=== PATIENT | female | born 1935 | race Caucasian/White ===

== ENCOUNTER 2019-08-29 10:47 | Emergency (ER) | payer MEDICARE, SELFPAY ==
--- NOTE | ~2019-08-29 | XR_ITS ---
EXAMINATION: XR knee RT min 4V EXAM DATE: 08/29/2019 11:16 INDICATION: Initial encounter following injury, with pain of the right knee. TECHNIQUE: Right knee frontal, crosstable lateral, orthogonal oblique projections for interpretation . There is no prior study for comparison. FINDINGS: No evidence osteochondral defect or joint body in the right knee joint. There are no acut e fractures or dislocations identified. There is no subcutaneous gas. There is soft tissue swelling anterior to the patellar tendon. There are no radiopaque foreign bodies. 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 IMPRESSION: 1. XR knee RT min 4V exam without acute osseous findings. 2. Soft tissue swelling. 3. Mild osteoarthritis. Reviewed, dictated and finalized at location B. MENT SCANNER
[2019-08-29 11:02] VITALS: BP 134/61; PULSE 64; RESP 16; TEMP 36.6; O2SAT 96
--- NOTE | 2019-08-29 11:12 | ED.LOWEXIN ---
HPI - Extremity Injury (Lower) General Chief Complaint: Extremity Injury, Lower Stated Complaint: Fall Right Knee Pain Time Seen by Provider: 08/29/19 11:15 Source: patient and RN notes reviewed Mode of arrival: ambulatory Limitations: no limitations History of Present Illness HPI Narrative: 84 year old female who presents to [facility] care with complaints of injury to her right knee one week ago when going into her door. Patient states that she slipped on ice and fell directly onto her right knee inside her door onto her floor. Patient states that she has pain to the anterior aspect of her right knee below knee cap area with discomfort noted on palpation, denies any pain with inversion or eversion of lower leg, mild swelling present to anterior knee region.Patient states that her pain is aggravated by weight bearing and movement.Patient states that she has applied ice and taken Tylenol can't take Motrin due to being on Eliquis for cardiac issues. MD complaint: knee injury and fall Onset (ago): week(s) (1) Injury: Right: knee Type of Injury: other (fell onto knee) Place: home Severity: moderate Severity scale (1-10): 6 Exacerbating factors: weight bearing and movement Context: fall Associated symptoms: swelling Other symptoms: none Treatments prior to arrival: cold therapy Related Data Home Medications Medication Instructions Recorded Confirmed apixaban [Eliquis] 5 mg PO BID 08/29/19 08/29/19 ibandronate 150 mg PO ONCE 08/29/19 08/29/19 metoprolol succinate 25 mg PO DAILY 08/29/19 08/29/19 Allergies Allergy/AdvReac Type Severity Reaction Status Date / Time diclofenac Allergy Mild RASH Verified 08/29/19 10:56 amoxicillin Allergy Unknown Rash Verified 08/29/19 10:56 piroxicam AdvReac Unknown Palpitation Verified 08/29/19 10:56 s tramadol AdvReac Unknown Nausea and Verified 08/29/19 10:56 Vomiting Review of Systems Review of Systems: Narrative: CONSTITUTIONAL: Denies fever, chills, or sweats. EYES: Denies visual changes, redness, or discharge. ENT: Denies rhinorrhea, congestion, sore throat, or otalgia. CARDIOVASCULAR: Denies chest pain, palpitations, or edema. RESPIRATORY: Denies cough or dyspnea. GASTROINTESTINAL: Denies abdominal pain, nausea, vomiting, or diarrhea. GENITOURINARY: Denies dysuria or hematuria. SKIN: Denies rash or itching. MUSCULOSKELETAL: Denies back pain,positive for right anterior knee pain below knee cap region, or myalgia. NEUROLOGIC: Denies headache, numbness, or weakness. PSYCHIATRIC: Denies anxiety or depression. All systems reviewed & are unremarkable except as noted in HPI and below PMFSH Past Medical History Medical History (Updated 08/30/19 @ 15:51 by Evelyn Pineda NP) A-fib Arthritis Bursitis of hip, right Osteoporosis Seasonal allergies Surgical History Surgical History (Updated 08/30/19 @ 15:42 by Evelyn Pineda NP) History of hand surgery History of partial hysterectomy S/P removal of right ovary Social History Social History (Updated 08/30/19 @ 15:44 by Evelyn Pineda NP) Smoking status: Never smoker Living arrangements: alone Occupation/Education: retired Gender identity (if verbalized by the patient): Female Comments At time of signature, agree with nursing past medical, surgical, social and family history. There is no relevant family history pertinent to the presenting complaint Exam Narrative: Exam Narrative: GENERAL: Well-appearing, well-nourished, and in no acute distress. HEAD: Normocephalic, atraumatic. EYES: PERRLA and EOMI. ENT: Nares clear, no rhinorrhea or epistaxis. Mucous membranes moist. NECK: Supple. CHEST: Clear to auscultation. No respiratory distress. HEART: Regular rate and rhythm. No murmur heard. Normal peripheral pulses. ABDOMEN: Soft, nontender, nondistended, normal active bowel sounds. EXTREMITIES: Normal range of motion. No edemar With exception to right knee with pain to anterior aspect of right knee below knee
== END 2019-08-29 11:46 | disposition home or self-care (01) ==
PROVIDERS: Emergency Provider Registered Nurse
DX: S80.01XA Contusion of right knee, initial encounter (principal); W00.0XXA Fall on same level due to ice and snow, initial encounter; M17.11 Unilateral primary osteoarthritis, right knee; I48.91 Unspecified atrial fibrillation; M81.0 Age-related osteoporosis without current pathological fracture
CPT/HCPCS: 73564; 99213; G0463

== ENCOUNTER 2021-02-10 15:41 | Emergency (ER) | payer MEDICARE, SELFPAY ==
[2021-02-10 15:50] VITALS: BP 117/49; PULSE 75; RESP 16; TEMP 36.4; O2SAT 98
--- NOTE | 2021-02-10 16:40 | ED.URI ---
HPI - URI/Sore Throat General Chief Complaint: Upper Respiratory Infection Stated Complaint: Sore Throat and coughing Time Seen by Provider: 02/10/21 16:40 Source: patient, RN notes reviewed and old records reviewed Mode of arrival: ambulatory History of Present Illness HPI Narrative: 85 year old female who presents to [facility] care with complaints of sore throat for the past 4 days of ear pressure, nasal drainage and cough which is frequent at times. Patient states that she has been expectorating some clear/ yellow/brown tinged sputum.Patient states that approximately a month ago he had upper respiratory infection that went away and now her symptoms are back.Patient states that pain to her throat is sharp and aching and is increased with swallowing. She denies any shortness of breath, did have one episode that felt like she was wheezing. Patient has not had COVID vaccine. MD elicited complaint: cough, sore throat, rhinorrhea and other (ear pressure) Pertinent past history: seasonal allergies Onset (ago): day(s) (4) Consistency: progressively worsening Severity: moderate Pain scale (0-10): 6 Description of mucous: yellow Able to tolerate fluids by mouth: Yes Exacerbating factors: swallowing Relieving factors: nothing Associated symptoms: rhinorrhea, nasal congestion, sore throat, cough and ear pain (pressure) Treatments prior to arrival: other (loratadine) Related Data Home Medications Medication Instructions Recorded Confirmed apixaban [Eliquis] 5 mg PO BID 08/29/19 02/10/21 metoprolol succinate 25 mg PO DAILY 08/29/19 02/10/21 Allergies Allergy/AdvReac Type Severity Reaction Status Date / Time diclofenac Allergy Mild RASH Verified 02/10/21 16:10 amoxicillin Allergy Unknown Rash Verified 02/10/21 16:10 piroxicam AdvReac Unknown Palpitation Verified 02/10/21 16:10 s tramadol AdvReac Unknown Nausea and Verified 02/10/21 16:10 Vomiting Review of Systems Review of Systems: Narrative: CONSTITUTIONAL: low grade fever, no chills, or sweats. EYES: Denies visual changes, redness, or discharge. ENT: Positive rhinorrhea, congestion, sore throat,ear pressure CARDIOVASCULAR: Denies chest pain, palpitations, or edema. RESPIRATORY:Positive cough denies dyspnea. GASTROINTESTINAL: Denies abdominal pain, nausea, vomiting, or diarrhea. GENITOURINARY: Denies dysuria or hematuria. SKIN: Denies rash or itching. MUSCULOSKELETAL: Denies back pain, joint pain, or myalgia. NEUROLOGIC: Denies headache, numbness, or weakness. PSYCHIATRIC: Denies anxiety or depression. All systems reviewed & are unremarkable except as noted in HPI and below PMFSH Past Medical History Medical History A-fib Arthritis Bursitis of hip, right Osteoporosis Seasonal allergies Surgical History Surgical History History of hand surgery History of partial hysterectomy S/P removal of right ovary Family History Family History (Updated 02/13/21 @ 13:26 by Evelyn Pineda NP) Grandparent Diabetes mellitus Hypertension Mother Hypertension Father Carcinoma of colon Sibling Lung cancer Social History Social History Smoking status: Never smoker Gender identity (if verbalized by the patient): Female Comments At time of signature, agree with nursing past medical, surgical, social and family history. There is no relevant family history pertinent to the presenting complaint Exam Narrative: Exam Narrative: GENERAL: Well-appearing, well-nourished, and in no acute distress. HEAD: Normocephalic, atraumatic. EYES: PERRLA and EOMI. ENT: Nares red with swollen turbinates, clear rhinorrhea no epistaxis. Mucous membranes moist.TM's normal with dull light reflex, throat red with no lesions or exudates no tonsil elargement, post nasal drainage present NECK: Supple.no lymphadenopathy CHEST: C
== END 2021-02-10 17:00 | disposition home or self-care (01) ==
PROVIDERS: Emergency Provider Registered Nurse
DX: J32.9 Chronic sinusitis, unspecified (principal); J02.9 Acute pharyngitis, unspecified; I48.91 Unspecified atrial fibrillation; M19.90 Unspecified osteoarthritis, unspecified site; M81.0 Age-related osteoporosis without current pathological fracture; Z90.711 Acquired absence of uterus with remaining cervical stump
CPT/HCPCS: 87081; 87880; 99213; G0463

== ENCOUNTER 2021-07-26 10:55 | Emergency (ER) | payer MEDICARE, SELFPAY ==
--- NOTE | ~2021-07-26 | XR_ITS ---
EXAMINATION: XR chest 2V DATE: 07/26/2021 12:10 INDICATION: Cough. Post covid lung disease. TECHNIQUE: Frontal and lateral views of the chest were obtained. COMPARISON: Chest 2 views 06/10/2018 FINDINGS: There is mild scarring at the lung apices. There are airspace opacities in the mid and lowe r lung zones with a peripheral predominance on the right. There is blunting of the posterior costophr enic angles. No pneumothorax. Cardiomegaly is noted. IMPRESSION: 1. Airspace opacities in the mid and lower lung zones, consistent with pneumonia versus atelectasis/s carring. 2. Blunting of the posterior costophrenic angles, consistent with scarring versus tiny pleural effusi ons. 3. Cardiomegaly. Reviewed, dictated and finalized at location B. WALL MINING MACHINE TENDER IMPRESSION: 1. Airspace opacities in the mid and lower lung zones, consistent with pneumoni a versus atelectasis/scarring. 2. Blunting of the posterior costophrenic angles, consistent with scarring vers us tiny pleural effusions. 3. Cardiomegaly.
[2021-07-26 11:06] VITALS: BP 116/71; PULSE 126; RESP 20; TEMP 36.8; O2SAT 97
--- NOTE | 2021-07-26 12:08 | ED.URI ---
HPI - URI/Sore Throat General Chief Complaint: Upper Respiratory Infection Stated Complaint: Cough Time Seen by Provider: 07/26/21 12:00 Source: patient, RN notes reviewed and old records reviewed Mode of arrival: ambulatory Limitations: no limitations History of Present Illness HPI Narrative: 86-year-old female who presents to [facility] Care with complaints of lingering cough which has continued after having COVID on Thanksgiving. Patient denies any shortness of breath continues to cough up mucous which was yellowish at first now is slimy in consistency. Patient states that she has these coughing fits, is on Doxycycline and benzonatate with no improvement in her cough Patient denies any fevers, chills or sweats, states some fatigue is not sleeping well. MD elicited complaint: cough Related Data Home Medications Medication Instructions Recorded Confirmed apixaban [Eliquis] 5 mg PO BID 08/29/19 02/10/21 metoprolol succinate 25 mg PO DAILY 08/29/19 02/10/21 Allergies Allergy/AdvReac Type Severity Reaction Status Date / Time diclofenac Allergy Mild RASH Verified 02/10/21 16:10 amoxicillin Allergy Unknown Rash Verified 02/10/21 16:10 piroxicam AdvReac Unknown Palpitation Verified 02/10/21 16:10 s tramadol AdvReac Unknown Nausea and Verified 02/10/21 16:10 Vomiting Review of Systems Review of Systems: CONSTITUTIONAL: Denies fever, chills, or sweats. EYES: Denies visual changes, redness, or discharge. ENT: Denies rhinorrhea, congestion, sore throat, or otalgia. CARDIOVASCULAR: Denies chest pain, palpitations, or edema. RESPIRATORY: Positive for productive cough denies any dyspnea. GASTROINTESTINAL: Denies abdominal pain, nausea, vomiting, or diarrhea. GENITOURINARY: Denies dysuria or hematuria. SKIN: Denies rash or itching. MUSCULOSKELETAL: Denies back pain, joint pain, or myalgia. NEUROLOGIC: Denies headache, numbness, or weakness. PSYCHIATRIC: Denies anxiety or depression. All systems reviewed & are unremarkable except as noted in HPI and below PMFSH Past Medical History Medical History A-fib Arthritis Bursitis of hip, right Osteoporosis Seasonal allergies Surgical History Surgical History History of hand surgery History of partial hysterectomy S/P removal of right ovary Family History Family History Grandparent Diabetes mellitus Hypertension Mother Hypertension Father Carcinoma of colon Sibling Lung cancer Social History Social History (Updated 07/27/21 @ 17:08 by Evelyn Pineda NP) Smoking status: Never smoker Alcohol intake: never Substance use: never Living arrangements: alone Gender identity (if verbalized by the patient): Female Comments At time of signature, agree with nursing past medical, surgical, social and family history. There is no relevant family history pertinent to the presenting complaint Exam Narrative: GENERAL: Well-appearing, well-nourished, and in no acute distress. HEAD: Normocephalic, atraumatic. EYES: PERRLA and EOMI. ENT: Nares clear, no rhinorrhea or epistaxis. Mucous membranes moist.TM's normal with good light reflex, throat pink with no lesions or exudates, no tosil enlargement NECK: Supple.no lymphadenopathy CHEST: Scattered Rhonchi on auscultation. No respiratory distress.no tachypnea noted SAO2 97% on room air HEART:irregular rate and rhythm. No murmur heard. Normal peripheral pulses. ABDOMEN: Soft, nontender, nondistended, normal active bowel sounds. EXTREMITIES: Normal range of motion. No edema. SKIN: Warm, dry, no rash. NEURO: No focal deficits. Alert and oriented x3. Course Vital Signs Vital signs: Vital Signs Temperature 36.8 C 07/26/21 11:06 Pulse Rate 126 H 07/26/21 11:06 Respiratory Rate 20 07/26/21 11:06 Blood Pressure 116/71 07/26/21 11:06 Pulse Ox
== END 2021-07-26 12:42 | disposition home or self-care (01) ==
PROVIDERS: Emergency Provider Registered Nurse
DX: J18.1 Lobar pneumonia, unspecified organism (principal); I48.91 Unspecified atrial fibrillation; M19.90 Unspecified osteoarthritis, unspecified site; M81.0 Age-related osteoporosis without current pathological fracture
CPT/HCPCS: 71046; 99213; G0463

== ENCOUNTER 2021-08-11 11:13 | Emergency (ER) | payer MEDICARE, SELFPAY ==
[2021-08-11 11:27] VITALS: BP 104/68; PULSE 97; RESP 18; TEMP 36.3; O2SAT 98
--- NOTE | 2021-08-11 11:56 | ED.GENADULT ---
HPI - General Adult General Chief complaint: Skin/Abscess/Foreign Body Stated complaint: Swollen feet Time Seen by Provider: 08/11/21 11:19 Source: patient Mode of arrival: ambulatory Limitations: no limitations History of Present Illness HPI narrative: 86-year-old female [facility] with complaints of swelling to her bilateral feet for the past 3 days. Patient reports that the swelling started to her lower legs and then settled into her feet the past few days. Patient reports that she has had intermittent shortness of breath since being diagnosed with pneumonia a few weeks ago. Patient reports that she does have a history of A. fib but denies history of congestive heart failure. Patient reports that she is scheduled to see her oracle business intelligence developer in September. Onset (ago): day(s) (3) Relieving factors: none Exacerbating factors: none Related Data Home Medications Medication Instructions Recorded Confirmed apixaban [Eliquis] 5 mg PO BID 08/29/19 08/11/21 metoprolol succinate 25 mg PO DAILY 08/29/19 08/11/21 Allergies Allergy/AdvReac Type Severity Reaction Status Date / Time diclofenac Allergy Mild RASH Verified 08/11/21 11:40 amoxicillin Allergy Unknown Rash Verified 08/11/21 11:40 piroxicam AdvReac Unknown Palpitation Verified 08/11/21 11:40 s tramadol AdvReac Unknown Nausea and Verified 08/11/21 11:40 Vomiting Review of Systems Constitutional: Constitutional: Denies chills, Denies fever(s) and Denies weakness ENT: Denies dizziness, Denies nasal congestion and Denies sore throat Cardiovascular: Cardiovascular: Denies chest pain, Denies rapid heart rate, Denies radiating jaw, neck or arm pain and Denies slow heart rate Respiratory: Respiratory: Denies chest congestion, Denies cough and Reports dyspnea Gastrointestinal: Gastrointestinal: Denies abdominal pain, Denies constipation, Denies heartburn, Denies diarrhea and Denies nausea Integumentary/Breasts: Comments: Swelling to bilateral feet Neurologic: Denies dizziness PMF Past Medical History Medical History A-fib Arthritis Bursitis of hip, right Osteoporosis Seasonal allergies Surgical History Surgical History History of hand surgery History of partial hysterectomy S/P removal of right ovary Family History Family History Grandparent Diabetes mellitus Hypertension Mother Hypertension Father Carcinoma of colon Sibling Lung cancer Social History Social History Smoking status: Never smoker Alcohol intake: never Substance use: never Gender identity (if verbalized by the patient): Female Comments At time of signature, I agree with nursing past medical, surgical, social and family history. There is no relevant family history pertinent to the presenting complaint. Exam Const: General: healthy appearing and no acute distress Orientation/consciousness: patient oriented x3 Neck: Neck: normal visual inspection Chest: Chest palpation & inspection: normal inspection of the chest Resp: Effort & Inspection: normal respiratory effort Auscultation: clear to auscultation bilaterally Cardio: Rate: regular rate Skin: General skin exam: normal color Rashes: no rashes Other: 2- 3+ edema noted to bilateral feet Neuro: General: patient oriented x3 and moves all extremities Psych: Appearance: grossly normal Mental Status: mental status grossly normal Affect: normal affect Attitude: cooperative Thought content: Yes Normal thought content present Course Course Level of Care: Express Care Visit Vital Signs Vital signs: Vital Signs Temperature 36.3 C L 08/11/21 11:27 Pulse Rate 97 08/11/21 11:27 Respiratory Rate 18 08/11/21 11:27 Blood Pressure 104/68 08/11/21 11:27 Pulse Oximetry 98
--- NOTE | 2021-08-11 12:02 | ECG_ITS ---
Measurements Intervals [place] Rate: 110 P: [place]: 0 QRS: 53 QRSD: 87 T: -36 QT: 323 QTc: 438 Interpretive Statements ATRIAL FIBRILLATION WITH RAPID VENTRICULAR RESPONSE LOW QRS VOLTAGE IN PRECORDIAL LEADS BORDERLINE ST-T WAVE ABNORMALITY- ANTEROLAT/INF LEADS BASELINE ARTIFACT- I, II, III, AVR, AVL ABNORMAL ECG Electronically Signed On 08-11-2021 12:58:30 KIER HAND by Sebastien Murry D.O.
== END 2021-08-11 12:19 | disposition short-term general hospital (02) ==
PROVIDERS: Emergency Provider Nurse Practitioner Family
DX: R22.43 Localized swelling, mass and lump, lower limb, bilateral (principal); I48.91 Unspecified atrial fibrillation; M19.90 Unspecified osteoarthritis, unspecified site; M81.0 Age-related osteoporosis without current pathological fracture; Z90.711 Acquired absence of uterus with remaining cervical stump
CPT/HCPCS: 93005; 99213; G0463

== ENCOUNTER 2023-01-17 14:26 | Emergency (ER) | payer MEDICARE, SELFPAY ==
[2023-01-17 14:34] VITALS: BP 107/56; PULSE 81; RESP 14; TEMP 36.8; O2SAT 99
--- NOTE | 2023-01-17 14:39 | ED.URI ---
HPI - URI/Sore Throat General Chief Complaint: Upper Respiratory Infection Stated Complaint: Sore Throat Time Seen by Provider: 01/17/23 14:39 Source: patient and RN notes reviewed History of Present Illness HPI Narrative: Patient is an 87-year-old female presents to urgent care with complaints of 1 week history of sore throat, postnasal drainage, left ear pain and cough. Patient states that she had company stay at her house last week and all of them were sick with a sore throat and sinus issues. Patient has not taken anything [id number] for her symptoms. States her cough this morning was productive and yellow. Denies any shortness of breath. No other acute complaints. No acute distress noted. Patient aware of the plan of care. Some parts of this dictation were generated by voice recognition software and may contain typographical and/or grammatical inaccuracies. Related Data Home Medications Medication Instructions Recorded Confirmed apixaban 5 mg tablet (Eliquis) 5 mg PO BID 08/29/19 08/11/21 metoprolol succinate 25 mg 25 mg PO DAILY 08/29/19 08/11/21 tablet,extended release 24 hr furosemide 20 mg tablet mg 01/17/23 ibandronate 150 mg tablet mg PO 01/17/23 potassium chloride 20 mEq meq PO 01/17/23 tablet,extended release(part/cryst) Allergies Allergy/AdvReac Type Severity Reaction Status Date / Time diclofenac Allergy Mild RASH Verified 08/11/21 11:40 amoxicillin Allergy Unknown Rash Verified 08/11/21 11:40 piroxicam AdvReac Unknown Palpitation Verified 08/11/21 11:40 s tramadol AdvReac Unknown Nausea and Verified 08/11/21 11:40 Vomiting Review of Systems Review of Systems: CONSTITUTIONAL: Denies fever, chills, or sweats. EYES: Denies visual changes, redness, or discharge. ENT: Reports of postnasal drainage, congestion, sore throat CARDIOVASCULAR: Denies chest pain, palpitations, or edema. RESPIRATORY: Reports a productive cough without dyspnea GASTROINTESTINAL: Denies abdominal pain, nausea, vomiting, or diarrhea. GENITOURINARY: Denies dysuria or hematuria. SKIN: Denies rash or itching. MUSCULOSKELETAL: Denies back pain, joint pain, or myalgia. NEUROLOGIC: Denies headache, numbness, or weakness. All other systems reviewed are negative, except as documented in HPI. [facility] Past Medical History Medical History A-fib Arthritis Bursitis of hip, right Osteoporosis Seasonal allergies Surgical History Surgical History History of hand surgery History of partial hysterectomy S/P removal of right ovary Family History Family History Grandparent Diabetes mellitus Hypertension Mother Hypertension Father Carcinoma of colon Sibling Lung cancer Social History Social History Smoking status: Never smoker Alcohol intake: never Substance use: never Living arrangements: alone Occupation/Education: retired Gender identity (if verbalized by the patient): Female Comments At the time of my signature, I reviewed and agree with the nursing past medical, surgical, social, and family history. There is no relevant family history pertinent to the patient complaint. Exam Narrative: GENERAL: This is a well-nourished, well-developed patient, in no apparent distress. HEAD: normocephalic, atraumatic. Reported frontal sinus tenderness EYES: PERRL. Sclera clear/white. Vision is grossly intact. EARS: External ears normal, auditory canals clear and without drainage, TMs normal without perforation. Hearing grossly intact. NOSE: External nose normal with no obvious nasal discharge, nares without redness, clear rhinorrhea. THROAT: Mucous membranes moist, posterior pharynx clear. Mild postnasal drainage NECK: Neck supple RESPIRATORY: Clear to auscultation. Breath sound
== END 2023-01-17 15:16 | disposition home or self-care (01) ==
PROVIDERS: Emergency Provider Nurse Practitioner Family; PCP Family Medicine
DX: J32.9 Chronic sinusitis, unspecified (principal); I48.91 Unspecified atrial fibrillation; M19.90 Unspecified osteoarthritis, unspecified site; M81.0 Age-related osteoporosis without current pathological fracture; Z90.711 Acquired absence of uterus with remaining cervical stump
CPT/HCPCS: 99213; G0463

== ENCOUNTER 2024-10-09 15:10 | Outpatient (CLI) | payer MEDICARE, SELFPAY ==
--- NOTE | ~2024-10-09 | XR_ITS ---
AP and oblique views of the right ribs Clinical History: Pain Findings: No rib fracture is seen. Osseous alignment is anatomic. Lungs are clear, without focal cons olidation or pleural effusion. Cardiomediastinal contour is within normal limits. Soft tissues are un remarkable. Impression: No rib fracture is seen. Reviewed, dictated and finalized at [facility]. Impression: No rib fracture is seen.
--- OUTSIDE RECORDS SUMMARY | 2024-10-09 17:02 | XMS_ITS | Encounter Summary ---
Author Organization [facility] Address [address] [place] [address] Phone Care Team Providers Care Vamper Name Role Phone Rowdy Gutierrez MD Primary Care Provider [phone] Reason for Visit * Reason Comments Medication Refill Encounter Details Date Type Department Care Team (Late st Contact Info) Description 03/30/2022 Refill [facility] - Primary Care - [place] [address] [place] [address] Brittany Alaniz MD [address] [place] [address] Medication Refill Social History Tobacco Use Types Packs/Day Years Used Date Smoking Tobacco: Never Smokeless Tobacco: Never Alcohol Use Standard Drinks/Week Comments No 0 (1 standard drink = 0.6 oz pur e alcohol) PHQ-2 Answer Date Recorded Total Score - Questions 1-9 0 08/31 Comments No Sex and Gender Information Value Date Recorded Sex Assigned at Not on file Legal Sex Female 12:20 AM CDT Gender Identity Not on file Sexual Orientation Not on file documented as of this encounter Miscellaneous Notes * Telephone Encounter - Colleen Carter RN - 03/30/2022 2:22 PM CDT Patient has new PCP, Dr. Gutierrez. documented in this encounter Plan of Treatment Not on file documented as of this encounter Visit Diagnoses Diagnosis Atrial fibrillation, unspecified type (HCC) documented in this encounter Additional Health Concerns Assessment Noted Time PHQ-9 Depression Total Score: 0 09/20/19 21 1:00 PM SUPERVISOR TYPESETTING documented as of this encounter Care Teams Vamper Relationship Specialty Start Date End Date Rowdy Gutierrez MD [address] [facility] [address] [place] [address] PCP - General Family Medicine 01/26/22 documented as of this encounter
--- OUTSIDE RECORDS SUMMARY | 2024-10-09 17:02 | XMS_ITS | Encounter Summary ---
Author Organization [facility] Address [address] [facility] [place] [address] Phone Care Team Providers Care Ux Architect Name Role Phone Brittany Alaniz MD Primary Care Provider [phone] Rowdy Gutierrez MD Primary Care Provider [phone] Reason for Visit * Reason Comments Medication Refill Encounter Details Date Type Department Care Team ([facility] st Contact Info) Description 07/02/2021 Refill [facility] - Primary Care - [place] [address] [place] [address] Brittany Alaniz MD [address] [place] [address] Medication Refill Social History Tobacco [...] encounter Miscellaneous Notes * Telephone Encounter - Elen Kaye RN - 07/04/2021 12:51 PM CST Medication failed the protocol, provider to review and approve the medication order if appropriate. Requested Prescriptions Pending Prescriptions Disp Refills Eliquis 5 MG Tablet [Pharmacy Med Name: ELIQUIS 5 MG TABLET] 60 Tablet 5 Sig: TAKE 1 TAB BY MOUTH 2 TIMES DAILY. INDICATIONS: ATRIAL FIBRILLATION healthfinch Not Delegated - Hematology: Anticoagulants Failed - 07/02/2021 9:06 AM Failed - This refill cannot be delegated Passed - Valid encounter within last 12 months Past Office Visits Recent Outpatient Visits 9 months ago Atrial fibrillation, unspecified type ([facility]) [facility] Brittany Alaniz MD 1 year ago Paroxysmal SVT (supraventricular tachycardia) ([facility]) [facility] Brittany Alaniz MD 1 year ago Paroxysmal SVT (supraventricular tachycardia) ([facility]) [facility] Brittany Cardenas MD 2 years ago Left-sided chest pain [facility] Brittany Cardenas MD 2 years ago Atrial fibrillation, unspecified type ([facility]) [facility] Brittany Alaniz MD Upcoming Appointments Future Appointments In 2 months [facility] In 2 months Brittany Alaniz MD [facility] 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 and Past Visits Recent Visits Date Type Provider Dept 09/20/20 Office Visit Brittany Alaniz MD [facility] 04/12/20 Office Visit Brittany Alaniz MD [facility] Showing recent visits within past 460 days with a meds authorizing provider and meeting all other requirements Future Appointments Date Type Provider Dept 09/20/21 Appointment Brittany Alaniz MD [facility] Showing future appointments within next 90 days with a meds authorizing provider and meeting all other requirements FMASTER documented in this encounter Plan of Treatment Not on file documented as of this encounter Visit Diagnoses Diagnosis Atrial fibrillation, unspecified type (HCC) documented in this encounter Additional Health Concerns Assessment Noted Time PHQ-9 Depression Total Score: 0 02/22/20 21 1:00 PM WHARFMASTER documented as of this encounter Care Teams Ux Architect Relationship Specialty Start Date End Date Brittany Alaniz MD PCP - General Family Medicine 09/07/15 01/25/22 Rowdy Gutierrez MD [address] [facility] [address] [place] [address] PCP - General Family Medicine 01/26/22 documented as of this encounter
--- OUTSIDE RECORDS SUMMARY | 2024-10-09 17:02 | XMS_ITS | Clinical Summary ---
Author Organization [facility] Address [address] [address] Phone Care Team Providers Care Concrete Mixer Operator Name Role Phone Rowdy Gutierrez MD Primary Care Provider Allergies Active Allergy Reactions Criticality Noted Date Comments Amoxicillin Rash,Itching Low 12/14/2015 Diclofenac Rash,Itching Low 12/14/2015 Piroxicam Palpitations Medium 12/14/2015 Tramadol-Acetaminophen Vomiting Medium 12/14/2015 Medications CALCIUM-VITAMIN D PO Take by mouth. Activ e Cholecalciferol (VITAMIN D3) 5000 units Capsule Take 5,000 Units by mouth daily. Active vitamin b-12 (CYANOCOBALAMIN) 500 MCG Tablet Take 500 mcg by mouth daily. Active triamcinolone (KENALOG) 0.1 % CreamIndications :Eczema, unspecified type Application Site: Apply b.i.d. X 2 weeks or until healed to eczematous spots on legs and bdomen (Description and Location) 30 g 1 1 Active ibandronate (BONIVA) 150 MG Tablet 1 tab monthly. Take with full glass of water and stay upright for 60 minutes after 3 Tablet 2 1 Active metoprolol Succinate (TOPROL-XL) 25 MG TABLET SR 24 HRIndications:At rial fibrillation, unspecified type (HCC) TAKE 1 TABLET BY MOUTH EVERY DAY 90 Tablet 1 2 Active Eliquis 5 MG TabletIndication s:Atrial Fibrillation TAKE 1 TAB BY MOUTH 2 TIMES DAILY. INDICATIONS: ATRIAL FIBRILLATION 180 Tablet Active Active Problems Problem Noted Date Diagnosed Date Paroxysmal SVT (supraventricular tachycardia) Atrial fibrillation 06/16/2019 Gastroesophageal reflux disease 04/22/2019 Vitamin B12 deficiency 12/15/2016 Osteoporosis 12/20/2015 Vitamin D deficiency 12/20/2015 Resolved Problems Problem Noted Date Diagnosed Date Resolved Date Hyperlipidemia 06/26/2017 10/07/2018 Insomnia 12/15/2016 12/15/2016 Family History Medical History Relation Name Comments Cancer Father colon Diabetes Paternal Grandmother Heart Disease Paternal Grandmother Relation Name Status Comments Father Mother Paternal Grandmother Social History Tobacco Use Types Packs/Day Years Used Date Smoking Tobacco: Never Smokeless Tobacco: Never Tobacco Cessation:Counseling Given: No Alcohol Use Standard Drinks/Week Comments No 0 (1 standard drink = 0.6 oz pur e alcohol) PHQ-2 Answer Date Recorded Total Score - Questions 1-9 0 08/31 Comments No Sex and Gender Information Value Date Recorded Sex Assigned at Not on file Legal Sex Female 12:20 AM CDT Gender Identity Not on file Sexual Orientation Not on file Last Filed Vital Signs Vital Sign Reading Time Taken Comments Blood Pressure 118/72 09/20/2020 12:54 PM 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 Pulse 63 09/20/2020 12:54 PM 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 Temperature 36.5 C (97.7 F) 09/20/2020 12:54 PM 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 Respiratory Rate 18 09/20/2020 12:54 PM 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 Oxygen Saturation 96% 09/20/2020 12:54 PM 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 Inhaled Oxygen Concentration - - Weight 64 kg (141 lb) 09/20/2020 12:54 PM 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 Height 154.9 cm (5' 1 ) 09/20/2020 12:54 PM 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 Body Mass Index 26.64 09/20/2020 12:54 PM 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 Plan of Treatment Health Maintenance Due Date Last Done Comments Hepatitis C Virus (HCV) Screening 1935 TdaP Immunization 1935 Pneumococcal Immunization (50+ years) (1 of 1 - PCV) 1985 Zoster Immunization (1 of 2) 1985 Respiratory Syncytial Virus (RSV) Immunization (Adult) (1 - 1-dose 75+ series) 2010 Influenza Immunization (#1) 2024 SARS-COV-2 Immunization (2023- season) 2024 DEXA Bone Density Discontinued 02/17/2020, 03/21/2017 Hepatitis B Immunization Aged Out No longer eligible based on patient's age to complete this topic Meningococcal Immunization (ACWY) Aged Out No longer eligible based on patient's age to complete this topic Rotavirus Immunization Aged Out No lo nger eligible based on patient's age to complete this topic Procedures Procedure Name Priority Date/Time Associated Diagnosis Comments [facility] BONE DENSITOMETRY AXIAL SKELETON Routine 02/17/2020 1:52 PM CDT Osteoporosis, unspecified osteoporosis type, unspecified pathological fracture presence from Last 3 Months or Most Recently Relevant to Health Maintenance Results * [facility]O BONE DENSITOMETRY AXIAL SKELETON (02/17/2020 1:52 PM CDT) Anatomical Region Laterality Modality BODY N/A Other 02/17/2020 1:59 PM CDT Impressions 02/17/2020 2:02 PM CDT IMPRESSION: Low bone mass. Fracture risk assessment (FRAX): 10 year risk for a major osteoporotic fracture is 41 % 10 year risk for a hip fracture is 27 % The FRAX tool has not been validated in patients currently or previously treated with pharmacotherapy for osteoporosis. In such patients, clinical judgement must be exercised in interpreting FRAX scores as the fracture risk may be overestimated. REFERENCE: Bone mineral density: Normal (T-score above or = -1.0) Low bone mass (T-score between -1.0 and -2.5) replaces the previously used term osteopenia Osteoporosis (T-score = or below -2.5) Medical evaluation for secondary causes of low bone mineral density may be appropriate. FRAX is a World Health Organization validated fracture risk assessment tool that calculates a person's 10 year probability of a major osteoporosis related fracture and hip fracture. According to the National Osteoporosis Foundation guidelines, postmenopausal women and men age 50 or older with low bone mass and a 10 year probability of a major osteoporosis related fracture = or greater than 20% or a 10 year probability of a hip fracture = or greater than 3% should be considered for treatment. For further information, including treatment recommendations, please refer to the 2013 ISCD Official Positions (http://www.iscd.org) and the NOF's Clinician's Guide to Prevention and Treatment of Osteoporosis (http://www.nof.org/professionals/clinical-guidelines) Narrative 02/17/2020 2:02 PM CDT EXAM DESCRIPTION: [facility] BONE DENSITOMETRY AXIAL SKELETON REASON FOR STUDY: 84 y/o year old F with given history of screening. 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 Patient is currently on Boniva COMPARISON: 03/21/2017, 12/10/2014 FINDINGS: AP LUMBAR SPINE L1-L4: Total BMD is 1.186 g/cm2 T-score is -0.1 Most recent prior BMD was 1.167 g/cm2 There has been a 1.6% change in BMD which is not statistically significant. LEFT HIP: Current Total BMD is 0.816 g/cm2 T-score is -1.5 Most recent prior Total BMD was 0.825 g/cm2 There has been a -1.1% change in BMD which is not statistically significant. Current femoral neck BMD is 0.737 g/cm2 T-score is -2.2 THIS IS AN ELECTRONICALLY VERIFIED FINAL REPORT 02/17/2020 1:59 PM - Electronically signed by Lenard Harrell M.D. AG: MERON Report ID: [id number] Reading Location: [place] [address] Procedure Note Lenard Harrell MD - 02/17/2020 EXAM DESCRIPTION: [facility] BONE DENSITOMETRY AXIAL SKELETON REASON FOR STUDY: 84 y/o year old F with given history of screening. 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 Patient is currently on Boniva COMPARISON: 03/21/2017, 12/10/2014 FINDINGS: AP LUMBAR SPINE L1-L4: Total BMD is 1.186 g/cm2 T-score is -0.1 Most recent prior BMD was 1.167 g/cm2 There has been a 1.6% change in BMD which is not statistically significant. LEFT HIP: Current Total BMD is 0.816 g/cm2 T-score is -1.5 Most recent prior Total BMD was 0.825 g/cm2 There has been a -1.1% change in BMD which is not statistically significant. Current femoral neck BMD is 0.737 g/cm2 T-score is -2.2 THIS IS AN ELECTRONICALLY VERIFIED FINAL REPORT 02/17/2020 1:59 PM - Electronically signed by Lenard Harrell M.D. AG: MERON Report ID: [id number] Reading Location: [place] [address] IMPRESSION: Low bone mass. Fracture risk assessment (FRAX): 10 year risk for a major osteoporotic fracture is 41 % 10 year risk for a hip fracture is 27 % The FRAX tool has not been validated in patients currently or previously treated with pharmacotherapy for osteoporosis. In such patients, clinical judgement must be exercised in interpreting FRAX scores as the fracture risk may be overestimated. REFERENCE: Bone mineral density: Normal (T-score above or = -1.0) Low bone mass (T-score between -1.0 and -2.5) replaces the previously used term osteopenia Osteoporosis (T-score = or below -2.5) Medical evaluation for secondary causes of low bone mineral density may be appropriate. FRAX is a World Health Organization validated fracture risk assessment tool that calculates a person's 10 year probability of a major osteoporosis related fracture and hip fracture. According to the National Osteoporosis Foundation guidelines, postmenopausal women and men age 50 or older with low bone mass and a 10 year probability of a major osteoporosis related fracture = or greater than 20% or a 10 year probability of a hip fracture = or greater than 3% should be considered for treatment. For further information, including treatment recommendations, please refer to the 2013 ISCD Official Positions (http://www.iscd.org) and the NOF's Clinician's Guide to Prevention and Treatment of Osteoporosis (http://www.nof.org/professionals/clinical-guidelines) Brittany Alaniz MD IM[facility]c DEXA ORDERABLES Final Re sult from Last 3 Months or Most Recently Relevant to Health Maintenance Insurance MEDICARE [facility] Care Teams Concrete Mixer Operator Relationship Specialty Start Date End Date Rowdy Gutierrez MD [address] [facility] [place] [address] PCP - General Family Medicine 01/26/22
--- OUTSIDE RECORDS SUMMARY | 2024-10-09 17:02 | XMS_ITS | Encounter Summary ---
Author Organization [facility] Address [address] [place] [address] Phone Care Team Providers Care Geophysical Computer Name Role Phone Brittany Alaniz MD Primary Care Provider [phone] Rowdy Gutierrez MD Primary Care Provider Reason for Visit * Reason Comments Medication Refill Encounter Details Date Type Department Care Team ([facility] st Contact Info) Description 03/26/2020 Refill [facility] - [place] [address] [place] [address] Brittany Alaniz MD [address] [place] [address] Medication Refill Social History Tobacco Use Types Packs/Day Years Used Date Smoking Tobacco: Never Smokeless Tobacco: Never Alcohol Use Standard Drinks/Week Comments No 0 (1 standard drink = 0.6 oz pur e alcohol) PHQ-2 Answer Date Recorded Total Score - Questions 1-9 0 09/27 Comments No Sex and Gender Information Value Date Recorded Sex Assigned at Not on file Legal Sex Female 12:20 AM CDT Gender Identity Not on file Sexual Orientation Not on file documented as of this encounter Miscellaneous Notes * Telephone Encounter - Elen Kaye RN - 03/29/2020 11:12 AM CDT Last refill 12/10/18 for patanol with #5 mL and 1 refills. Last labs done 10/02/19. Last office visit 10/09/19. Future office visit 04/12/20. documented in this encounter Plan of Treatment Not on file documented as of this encounter Visit Diagnoses Diagnosis Allergic conjunctivitis of both eyes Other chronic allergic conjunctivitis documented in this encounter Additional Health Concerns Assessment Noted Time PHQ-9 Depression Total Score: 0 10/09/19 20 11:00 AM CDT documented as of this encounter Care Teams Geophysical Computer Relationship Specialty Start Date End Date Brittany Alaniz MD PCP - General Family Medicine 09/07/15 01/25/22 Rowdy Gutierrez MD [address] [facility] [address] [place] [address] PCP - General Family Medicine 01/26/22 documented as of this encounter
--- OUTSIDE RECORDS SUMMARY | 2024-10-09 17:02 | XMS_ITS | Encounter Summary ---
Author Organization [facility] Address [address] [place] [address] Phone Care Team Providers Care Consumer Product Advisor Name Role Phone Rowdy Gutierrez MD Primary Care Provider [phone] Reason for Visit * Reason Comments Medication Refill Encounter Details Date Type Department Care Team (Late st Contact Info) Description 02/22[facility]20[facility] - [place] [address] [place] [address] Brittany Alaniz MD [address] [place] [address] Medication Refill Social History Tobacco [...] Telephone Encounter - Colleen Carter RN - 02/22/2022 1:49 PM CDT Patient has new PCP. 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
--- OUTSIDE RECORDS SUMMARY | 2024-10-09 17:02 | XMS_ITS | Referral Summary ---
Author Organization [facility] Medical Office Building [address] Address [address] [place] [address] Care Team Providers Care Music Agent Name Role Phone Zander Medina MD Unavailable Rowdy Gutierrez MD Primary Care Provider [phone] Encounters Date Type Department Care Team Description 10/06/2024 3:51 PM CDT - 10/06/2024 4:25 PM CDT Emergency [facility] Emergency Department [address] [place] [address] Influenza A (Primary Dx) Discharge Disposition: Discharge to home or self care 08/08/2024 Telephone [place] [employer] [facility] [address] [facility] [address] [place] [address] Sally Long MA from Last 3 Months Allergies Active Allergy Reactions Criticality Noted Date Comments Amoxicillin Hives,Itching,Rash Medium 12/14/2015 Reaction: HIVES, Amoxicillin Trihydrate Other (See comments) Low 03/2006 Diclofenac Rash,Itching Medium 12/14/2015 Reaction: RASH Piroxicam Other (See comments),Palpitatio ns Medium 12/14/2015 Reaction: OTHER REACTION, Potassium Medications ibandronate (BONIVA) 150 mg tablet Take 1 tablet (150 mg total) by mouth every 30 (thirty) days Take in AM with glass of water prior to food, don't lie down for 30 minutes. Active calcium citrate-vitamin D2 250-100 mg-unit per tablet Take 2 tablets by mouth 2 (two) times a day Active Klor-Con M20 20 mEq CR tablet TAKE 1 TABLET (20 MEQ TOTAL) BY MOUTH 3 (THREE) TIMES A WEEK 90 tablet 3 07/28/2022 Active furosemide (LASIX) 20 mg tablet TAKE 1 TABLET BY MOUTH 3 TIMES A WEEK. 36 tablet 1 01/19/2023 Active apixaban (ELIQUIS) 2.5 mg tablet Take 1 tablet (2.5 mg total) by mouth 2 (two) times a day Active metoprolol XL (TOPROL-XL) 25 mg extended release tablet Take 0.5 tablets (12.5 mg total) by mouth daily Active amiodarone (PACERONE) 200 mg tabletIndicatio ns:Paroxysmal A-fib (HCC) Take 0.5 tablets (100 mg total) by mouth daily 06/19/2024 06/19/20 25 Active azithromycin (ZITHROMAX) 250 mg tablet Take 2 tablets (500 mg total) by mouth daily for 1 day, THEN 1 tablet (250 mg total) daily for 4 days. 6 tablet 10/06/2024 10/12/19 25 Active doxycycline (VIBRAMYCIN) 100 mg capsule Take 1 tablet/capsul e (100 mg total) by mouth 2 (two) times a day for 5 days 10 tablet/capsul e 10/06/2024 10/12/19 25 Active methylPREDNISol one (MEDROL DOSEPACK) 4 mg Dosepack Take as directed on package 1 packet 10/06/2024 10/13/19 25 Active albuterol HFA (PROVENTIL HFA,VENTOLIN HFA,PROAIR HFA) 90 mcg/actuation inhaler Inhale 1-2 puffs every 6 (six) hours as needed for wheezing 1 each 10/06/2024 10/07/19 26 Active Active Problems Problem Noted Date Diagnosed Date Valvular heart disease 04/13/2022 Overview (06/19/2024): Mild to moderate MR/TR on echo 22 August 2021. Normal LVEF. Mild MR/severe TR on echo 13 April 2023. Patient was evaluated by Dr. Lucero but no surgery indicated. Mild to moderate MR/moderate TR on echo 21 January 2024. Normal LVEF of 65%. Assessment & Plan (12/20/2023 12:37 PM CDT): Patient has no major shortness of breath or leg edema. We discussed the severe TR noted about 6 months ago and I showed her the pictures on PICOM. Since she is having some fatigue, we should get another echocardiogram to make sure LV function is okay. Assessment & Plan (06/19/2023 12:15 PM CERTIFIED LEGAL INVESTIGATOR): Discussed last echo findings from 2 months ago. She did see Dr. Lucero for the severe TR---no surgery planned at her age. Assessment & Plan (04/19/2023 1:25 PM CDT): Patient does not have any shortness of breath leg edema but has fatigue over the past few months. Of course, she does not push herself to maybe cause shortness of breath. We discussed severe TR and I showed her the echocardiogram pictures. She is willing to go see Dr. Lucero to see what else we need to do. She might need a OSWALD and or a heart catheterization soon. Assessment & Plan (04/13/2022 1:41 PM CDT): We discussed echo result and I showed her pictures of the leakage on PICOM. She does have biatrial enlargement. No shortness of breath. We should get another echocardiogram before next office visit. Elevated LDL cholesterol level 04/13/2022 Overview (06/23/2024): LDL of 113 mg/dL on 10 September 2020. LDL of 62 mg/dL on 15 April 2022. LDL of 59 mg/dL on 23 April 2023. LDL of 85 mg/dL on 21 June 2024. Not on statin. Normal Cardiolite on 07 May 2019 done at [facility]. LVEF of 75%. Assessment & Plan (06/19/2024 1:07 PM CERTIFIED LEGAL INVESTIGATOR): Patient denies any chest pain or shortness of breath with usual activities at [facility]. Since she will be seeing a primary care doctor next week Sunday, we should get a lipid/liver panel and a CBC level as soon as possible. Apparently she did have thrombocytopenia in 2020 and also 7 months ago. Assessment & Plan (04/19/2023 1:26 PM CDT): Discussed LDL cholesterol goal of less than 100 mg/dL. She was at goal last year but no recent lipid panel that I could find. Patient agreeable to getting another lipid/liver panel now. Assessment & Plan (04/13/2022 1:40 PM CDT): Discussed LDL cholesterol goal less than 100 mg/dL. Since she has been watching her diet carefully the past few weeks, we should get another lipid panel and she is agreeable. Hyponatremia 08/21/2021 COVID-19 virus detected 07/01/2021 Current use of retirement anticoagulation 020 Assessment & Plan (05/11/2021 1:41 PM CDT): Patient has had no major bleeding events. She will continue with long-term anticoagulation. Assessment & Plan (02/04/2020 10:39 AM CDT): The patient has had no major bleeding events. She will continue with long-term anticoagulation. 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 Identified on CT angiography for PE protocol Assessment & Plan (02/04/2020 10:38 AM CDT): The anomalous pulmonary venous return is not created any evidence for hypoxia, right heart failure/enlargement/volume loaded state. At this point I doubt this will ever create any need for further investigation. Paroxysmal A-fib 06/20/2019 Overview (12/20/2023): Noted in July 2021 when patient tested positive for COVID the 2nd time. First COVID test was positive on 01 July 2021. On Eliquis 2.5 mg p.o. b.i.d.. Assessment & Plan (06/19/2024 1:06 PM CERTIFIED LEGAL INVESTIGATOR): Patient denies any palpitations, dizziness or syncope. Exam in the office today revealed a fairly regular rhythm. No significant bleeding issues with Eliquis. No change in medical regimen here. Assessment & Plan (12/20/2023 12:36 PM CDT): Eliquis was decreased by primary care doctor to 2.5 mg p.o. b.i.d.. This is the correct dose for her age and weight. No significant bleeding issues with this lower dose of Eliquis. No palpitations, dizziness or syncope. Since she is tired and fatigued, I offered her a cardioversion and perhaps she will feel better in sinus rhythm. Assessment & Plan (06/19/2023 12:14 PM CERTIFIED LEGAL INVESTIGATOR): Patient denies any palpitations, dizziness or syncope. Exam in the office today still showed atrial fibrillation. EKG confirmed atrial fibrillation. No acute changes. No bleeding issues with Eliquis. No change in medical regimen here. Assessment & Plan (04/19/2023 1:25 PM CDT): No dizziness palpitations or syncope. Still in atrial fibrillation on my exam but well controlled. No bleeding issues with Eliquis. No change in medical regimen here. Assessment & Plan (04/13/2022 1:40 PM CDT): No palpitations, dizziness or syncope. Still in atrial fibrillation with a controlled ventricular response on my examination today. No rectal bleeding or nose bleeds but having some petechiae in the lower extremities. Since she had a low platelet count of 102,000 with COVID late last year, I will get another CBC now. Assessment & Plan (05/11/2021 1:41 PM CDT): Patient has had no evidence for any recurrence of her atrial fibrillation on a persistent or symptomatic basis. She will continue with rate suppression long- term anticoagulation. Assessment & Plan (02/04/2020 10:38 AM CDT): Patient has done well without recurrence of her chest discomfort or evidence of her atrial fibrillation. Precordial pain 06/20/2019 Overview (04/13/2022): It was thought to be due to mental stress. Normal Cardiolite in April 2019 ([facility]). Normal LVEF on echo [address] of the chest 06/20/2019 Gastroesophageal reflux disease 04/22/2019 Closed displaced fracture of third metatarsal bone of right foot 04/16/2018 Closed fracture of lateral portion of left tibia l plateau 04/16/2018 Sprain of anterior talofibular ligament of left ankle 04/16/2018 Trochanteric bursitis, right hip 09/13/2017 Closed fracture of patella 11/18/2013 Overview (11/03/2016): FRACTURE PATELLA-CLOSED Acute on chronic systolic congestive heart failu re Acute on chronic diastolic (congestive) heart fa ilure Social History Tobacco Use Types Packs/Day Years Used Date Smoking Tobacco: Never Smokeless Tobacco: Never Tobacco Cessation:Counseling Given: Not Answered Alcohol Use Standard Drinks/Week Comments Not Currently 0 (1 standard drink = 0.6 oz pur e alcohol) Personal Safety Answer Date Recorded Have you ever been in or are you currently in a harmful physical or emotional relationship or is someone making you feel afraid or unsafe? Denies 10/06/2024 Comments No Sex and Gender Information Value Date Recorded Sex Assigned at Not on file Legal Sex Female 3:10 AM CERTIFIED LEGAL INVESTIGATOR Gender Identity Not on file Sexual Orientation Not on file Last Filed Vital Signs Vital Sign Reading Time Taken Comments Blood Pressure 115/46 10/06/2024 1:38 PM CDT Pulse 67 10/06/2024 1:38 PM CDT Temperature 37 C (98.6 F) 10/06/2024 1:38 PM CDT Respiratory Rate 16 10/06/2024 1:38 PM CDT Oxygen Saturation 98% 10/06/2024 1:38 PM CDT Inhaled Oxygen Concentration - - Weight 63.5 kg (140 lb) 10/06/2024 1:38 PM CDT Height 152.4 cm (5') 10/06/2024 1:38 PM CDT Body Mass Index 27.34 10/06/2024 1:38 PM CDT Plan of Treatment Not on file Procedures Procedure Name Priority Date/Time Associated Diagnosis Comments XR CHEST 1 VIEW ED 10/06/2024 1:56 PM CDT INFLUENZA A/B, RSV, AND COVID-19 PCR STAT 10/06/2024 1:41 PM CDT from Last 3 Months Results * XR Chest 1 Vw (10/06/2024 1:56 PM CDT) Anatomical Region Laterality Modality Body, Chest N/A Computed Radiogr aphy 10/06/2024 2:10 PM CDT Narrative 10/06/2024 2:11 PM CDT EXAM DESCRIPTION: XR CHEST 1 VIEW REASON FOR STUDY: cough c/o cough, congestion, chest congestion and fevers since Sunday. Pt reports she is coughing up white mucus and today it was pink tinged TECHNIQUE: Single frontal radiographic view(s) of the chest. COMPARISON: 08/21/2021 FINDINGS: There is cardiomegaly. The pulmonary vasculature and mediastinum are grossly stable. There is no definite evidence of a pneumothorax. There is no definite evidence of a pleural effusion. There are patchy bibasilar airspace opacities. The osseous structures are acutely grossly stable. IMPRESSION: Patchy bibasilar airspace opacities, which is concerning for developing airspace disease. Cardiomegaly. THIS IS AN ELECTRONICALLY VERIFIED FINAL REPORT 10/06/2024 2:11 PM - Electronically signed by Tammy Mendzoa D.O. PS: PS Report ID: [id number] Reading Location: [id number] Procedure Note Tammy Mendoza DO - 10/06/2024 EXAM DESCRIPTION: XR CHEST 1 VIEW REASON FOR STUDY: cough c/o cough, congestion, chest congestion and fevers since Sunday. Ptreports she is coughing up white mucus and today it was pink tinged TECHNIQUE: Single frontal radiographic view(s) of the chest. COMPARISON: 08/21/2021 FINDINGS: There is cardiomegaly. The pulmonary vasculature and mediastinum aregrossly stable. There is no definite evidence of a pneumothorax. There is no definite evidence of a pleural effusion. There are patchy bibasilarairspace opacities. The osseous structures are acutely grossly stable. IMPRESSION: Patchy bibasilar airspace opacities, which is concerning for developing airspace disease. Cardiomegaly. THIS IS AN ELECTRONICALLY VERIFIED FINAL REPORT 10/06/2024 2:11 PM - Electronically signed by Tammy Mendoza D.O. PS: PS Report ID: [id number] Reading Location: [id number] Lucía Boyer MD IMG XR PROCEDURES Final R esult * (ABNORMAL) Influenza A/B, RSV, and COVID-19 PCR Nasopharyngeal (10/06/2024 1:41 PM CDT) COVID-19 RNA Negative Negative Influenza A RNA Positive(A) Negative [facility] ([place]) Influenza B RNA Negative Negative [facility] ([place]) RSV RNA Negative Negative [facility] ([place]) Comment: Interpretive data: Testing performed by [facility]. This test is performed using the Retora Black Xpert Xpress CoV-2/Flu/RSV plus assay. This is a multiplex, real- time reverse transcriptase PCR assay intended for the qualitative detection of nucleic acid from SARS-CoV-2, influenza A, influenza B, and respiratory syncytial virus. This assay has been cleared by the [place] Food and Drug administration. The performance characteristics have been verified by the [facility]. Results must be considered in the clinical context, and a negative result does not rule out infection. Interpretive Data last revised 2023 Nasopharyngeal 10/06/2024 1: 41 PM CDT 10/06/2024 1:43 PM CDT Narrative [facility] ([place]) - 10/06/2024 2:21 PM CDT Is the Patient experiencing symptoms consistent with COVID?->Yes us Lucía Boyer MD LAB MICROBIOLOGY - GENERA L ORDERABLES Final Result [facility] ([place]) [address] [facility] [place] [id number] from Last 3 Months Additional Health Concerns Infection Onset Date Last Indicated Influenza, adult 10/06/2024 10/06/2024 Insurance [employer] MEDICARE [facility] Address: [address] [address] [place] [address] [facility] MEDICARE SOLUTIONS Advance Directives For more information, please contact: [phone] * Full Code (Latest Code Status on File) Date Activated Date Inactivated Comments 08/21/2021 4:56 PM 08/24/2021 9:00 PM * Full Code Date Activated Date Inactivated Comments 06/19/2019 6:14 PM 06/21/2019 7:46 PM Care Teams Music Agent Relationship Specialty Start Date End Date Rowdy Gutierrez MD PCP - General Family Medicine 10/12/21 Zander Medina MD Consulting Physician Cardiovascular Disease 08/24/21
--- OUTSIDE RECORDS SUMMARY | 2024-10-09 17:02 | XMS_ITS | Continuity of Care Document ---
Author Organization [facility] Address [address] [place] [address] Phone Care Team Providers Care Grounding Engineer Name Role Phone Olegario HAN Meng Unavailable Unavailable Allergies, Adverse Reactions, Alerts Substance Reaction Status Criticality TRAMADOL HCL Other Active No Information diclofenac Rash Active No Information piroxicam Other Active No Information AMOXICILLIN TRIHYDRATE Other Active No In formation Medications Medication Instructions Dosage Effective Dates (start - stop) Status Comments clotrimazole-betame thasone 1 %-0.05 % topical cream apply by topical route 2 times every day for 2 weeks to the affected and surrounding areas of skin in the morning and evening 0.00 - Active hand written Boniva 150 mg tablet take 1 tablet by mouth every month on the same date, with a full glass of water and remain in an upright position for at least 60 minutes. - Active Calcium 600 + D(3) 600 mg (1,500 mg)-400 unit tablet one bid - Active otc Advance Directives Directive Yes / No Effective Date File Name No Information Encounters Encounter Description Practice Location Reason(s) For Visit Diagnoses Date Provider Providers Copied on Encounter [facility], [address], [place], [place], [address] , [place] tel:[phone] [facility] Skin rash Sep-0 5-201 5 Olegario Santoyo. [address] [place], [place], [address], [place]. tel:[phone] Referring Provider: Natanael Melvin [address] [place], [address] . tel:[phone] [facility] [address], [place], [place], [address] , tel:[phone] [facility] OsteopeniaHyperlip idemia 5 Olegario Santoyo. [address] [place], [place], [address], [place]. tel:[phone] Referring Provider: Natanael Melvin, [address] [place], [address] . tel:[phone] [facility] [employer], [address], [place], [place], [address] , [place] tel:[phone] [facility] HyperlipidemiaOste oporosisHand fracturePatella fracture 4 Melvin Natanael. [address] [place], [place], [address], [place]. tel:[phone] Referring Provider: Natanael Melvin, [address] [place], [address] . tel:[phone] [facility] [employer], [address], [place], [place], [address] , tel:[phone] [facility] CoughUrinary bladder disorder 3 Charles [address]. [address] [place] [address] [address], [place], [place], [address]. tel:[phone] Referring Provider: Natanael Melvin, [address] [place], [address] . tel:[phone] [facility], [address], [place], [place], [address] , tel:[phone] [facility] Urinary tract infection, site not specifiedOsteoporo sisHyperlipidemiaO steoarthritisAller gic rhinitisUrinary incontinenceRectoc eleRoutine general medical examination at [facility] 3 Olegario Santoyo. [address] [place], [place], [address], [place]. tel:[phone] Referring Provider: Natanael Melvin, [address] [place], [address] . tel:[phone] [facility] [employer], [address], [place], [place], [address] , tel: [phone] [facility] Upper respiratory tract infection 3 Soila Bar[address]. [address], [address], [place], [place], [address], . tel:[phone] [facility], [address], [place], [place], [address] , tel: [phone] [facility] Osteoarthrosis, Unspecified, Unspecified SiteOsteoporosis, unspecifiedUrinary incontinence, unspecifiedOther and unspecified hyperlipidemiaAlle rgic rhinitis, cause unspecified 3 Soila [address]. [address], [address], [place], [place], [address], [place]. tel:[phone] [facility], [address], [place], [place], [address] , tel: [phone] [facility] ALLERGIC RHINITIS NOSHYPERLIPIDEMIA NEC/NOSOSTEOARTHRO S NOS-UNSPECOSTEOPOR OSIS NOSURINARY INCONTINENCE NOSAnnual physical exam 2 No Information [facility], [address], [place], [place], [address] , [place] tel: [phone] [facility] Allergic rhinitis, cause unspecifiedOther and unspecified hyperlipidemiaOste oarthrosis, unspecified whether generalized or localized, involving unspecified siteOsteoporosis, unspecifiedUrinary incontinence, unspecified 1 No Information [facility], [address], [place], [place], [address] , tel: [phone] [facility] OSTEOARTHROS NOS-UNSPECALLERGIC RHINITIS NOSOSTEOPOROSIS NOSLONG-TERM USE MEDS NECHYPERLIPIDEMIA NEC/NOS 0 No Information [facility], [address], [place], [place], [address] , tel: [phone] [facility] HEADACHEDIZZINESS AND GIDDINESS 9 No Information [employer], [address], [place], [place], [address] , tel: [phone] [facility] SCREEN MAL NEOP-RECTUMURIN TRACT INFECTION NOSURINARY INCONTINENCE NOS Zhao-1 1-200 9 No Information [facility], [address], [place], [place], [address] , [place] tel: [phone] [facility] URGENCY OF URINATION 8 No Information [facility], [address], [place], [place], [address] , tel: [phone] [facility] CORRECTIONAL CLASSIFICATION COUNSELOR KIDNEY DIS STAGE II 8 No Information [facility], [address], [place], [place], [address] , [place] tel: [phone] [facility] FLATUL/ERUCTAT/GAS PAINABDMNAL PAIN UNSPCF SITEPOSTMENOPAUSAL BLEEDING 8 No Information [facility], [address], [place], [place], [address] , [place] tel: [phone] [facility] ACUTE URI NOS 7 Conversion Doctor. [address] [place] [address], [place], [address], . [employer], [address], [place], [place], [address] , tel: [phone] [facility] IDIO PERIPH NEURPTHY NOS 200 7 No Information [facility], [address], [place], [place], [address] , [place] tel: [phone] [facility] No Information 9-200 6 No Information [facility], [address], [place], [place], [address] , tel: [phone] [facility] INSOMNIA NOS 200 5 No Information [facility], [address], [place], [place], [address] , tel: [phone] [facility] SCREEN MAL NEOP-CERVIX 200 3 No Information Family History Family Member Type Diagnosis Age At Onset Mother Problem (finding) hypertension Father Problem (finding) cancer of colon Mother Problem (finding) coronary arterioscleros is Immunizations Vaccine Date Status Comments Tdap administered Source: [facility] unization Record Payers Payer name Insurance type Covered libertarian ID Authoriza tion(s) MEDICARE MB [id number] AARP MDCR SUPPLEMENT ONLY CI [id number] Social History Type Description Quantity Date Captured Comments Alcohol Use Details Caffeine Use Details tea 3 cups per day Tobacco Use Status No Information Smoking Status Never smoker Sex Female Vital Signs Date / Time: Height Weight BMI Pulse Rate Blood Pressure Temperature Respiratory Rate Body Surface Area Head Circumference Head Circ. Percentile Wt./Naveed. Percentile BMI percentile Pulse Ox Inhaled Ox 4:42 PM 65.499 kg (144.40 lbs) 76 /min 140/70 mm[Hg] 97.90 F Chief Complaint And Reason For Visit No Information Reason For Referral Reason For Referral No Information History Of Present Illness Encounter Date Complaint History Of Prese nt Illness No Information Functional Status Date Functional Assessmen t No Information Instructions Date Instruction Additional Infor mation No Information Assessments Type Assessment Date No Information Patient Care Teams Name Effective Dates (start - stop) Status Members No Information
--- OUTSIDE RECORDS SUMMARY | 2024-10-09 17:02 | XMS_ITS | Clinical Summary ---
Author Organization [facility] B Address [address] [place] [address] Care Team Providers Care Punch Molder Name Role Phone Zander Medina MD Unavailable [phone] Rowdy Gutierrez MD Primary Care Provider [phone] Allergies Active Allergy Reactions Criticality Noted Date [...] okay. Assessment & Plan (06/19/2023 12:15 PM OPTOMETRY TEACHER): Discussed last echo findings from 2 months [...] Cardiolite on 07 May 2019 done at [facility]. LVEF of 75%. Assessment & Plan (06/19/2024 1:07 PM OPTOMETRY TEACHER): Patient denies any chest pain or shortness of breath with usual activities at [facility]. 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 Assessment & Plan (06/19/2024 1:06 PM OPTOMETRY TEACHER): Patient denies any palpitations, dizziness or syncope. [...] rhythm. Assessment & Plan (06/19/2023 12:14 PM OPTOMETRY TEACHER): Patient denies any palpitations, dizziness or syncope. 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 at [facility] [address] [facility] [address] [place] [address] Sally Long MA from Last 3 Months Surgical History Surgery Date Site/Laterality Comments HYSTERECTOMY Hysterectomy OTHER SURGICAL HISTORY removal of ganglion cyst left wrist Medical History Medical History Date Comments Osteoporosis Osteoporosis Hx Other Medical patella fx righ t and fx fifth metacarpal Acute on chronic systolic co ngestive heart failure (HCC) Acute on chronic diastolic (congestive) heart failure (HCC) Valvular heart disease 04/13/2022 Social History Tobacco Use Types Packs/Day Years [...] on file Legal Sex Female 3:10 AM OPTOMETRY TEACHER Gender Identity Not on file Sexual Orientation Not on file Obstetrics History Para Term AB IAB SAB Ectopic Multiple Livin g Live Births 6 6 6 Date Outcome GA Total Labor Labor/2nd/3rd Weight Sex Type Anes PTL Mara A1 A5 Name Clin Term Term Term Term Term Term Last Filed Vital Signs Vital Sign Reading [...] 10/06/2024 1:38 PM CDT Plan of Treatment Health Maintenance Due Date Last Done Comments Depression Screening 1935 DTaP/Tdap/Td Vaccine (1 - Tdap) 1946 Hepatitis B Screening 1953 Pneumococcal vaccine 65+ (1 of 2 - PCV) 1954 Zoster Vaccine (1 of 2) 1985 Well Visit 65+ 2000 Fall Risk Assessment 08/24/2022 08/24/2021 Influenza Vaccine (#1) 2024 Procedures Procedure Name Priority Date/Time Associated Diagnosis [...] Tammy Mendoza D.O. PS: PS Report ID: [id number] Reading Location: [id number] Procedure Note Reji Tammy Richard, DO - 10/06/2024 EXAM DESCRIPTION: XR CHEST [...] Tammy Mendoza D.O. PS: PS Report ID: [id number] Reading Location: [id number] Lucía Boyer MD IMG XR PROCEDURES Final R esult * (ABNORMAL) Influenza A/B, RSV, and COVID-19 PCR Nasopharyngeal (10/06/2024 1:41 PM CDT) COVID-19 RNA Negative Negative Influenza A RNA Positive(A) Negative [facility] (OLIVIA) Influenza B RNA Negative Negative [facility] (OLIVIA) RSV RNA Negative Negative BEVERLY AIDAN (CRESSONA) Comment: Interpretive data: Testing performed by [facility]. This test is performed using the [employer] Xpert Xpress CoV-2/Flu/RSV plus assay. This is a multiplex, real- time reverse transcriptase PCR assay intended for the qualitative detection of nucleic acid from SARS-CoV-2, influenza A, influenza B, and respiratory syncytial virus. This assay has been cleared by the [place] Food and Drug administration. The performance characteristics have been verified by the [facility]. Results must be considered in the clinical context, and a negative result does not rule out infection. Interpretive Data last revised 2023 Nasopharyngeal 10/06/2024 1: 41 PM CDT 10/06/2024 1:43 PM CDT Narrative BEVERLY BERMUDEZ ([place]ESS[place]) - 10/06/2024 2:21 PM CDT Is the Patient experiencing symptoms consistent with COVID?->Yes Lucía Boyer MD LAB MICROBIOLOGY - GENERA L ORDERABLES Final Result BEVERLY BERMUDEZ ([place]ESS[place]) 1 [facility] [place] [address] from Last 3 Months Additional Health Concerns Infection Onset Date Last Indicated Influenza, adult 10/06/2024 10/06/2024 Insurance [facility]ICARE [facility] Address: [facility] [address] [place] [address] MEDICARE [facility] Address: [address] [place] [address] MEDICARE [employer] Advance Directives For more information, please contact: [phone] * Full Code (Latest Code Status on File) Date Activated Date Inactivated Comments 08/21/2021 4:56 PM 08/24/2021 9:00 PM * Full Code Date Activated Date Inactivated Comments 06/19/2019 6:14 PM 06/21/2019 7:46 PM Care Teams Punch Molder Relationship Specialty Start Date End Date Rowdy Gutierrez MD PCP - General Family Medicine 10/12/21 Zander Medina MD Consulting Physician Cardiovascular Disease 08/24/21
--- OUTSIDE RECORDS SUMMARY | 2024-10-09 17:02 | XMS_ITS | Continuity of Care Document ---
Author Organization [facility] Address [address] [place] [address] Dr Jiménez [address] [place] [phone] Phone Care Team Providers Care Foundry Manager Name Role Phone Sandivitor GRAY, Lashawn Unavailable Unavailable Allergies, Adverse Reactions, Alerts Substance Reaction Status Criticality Sulfa (Sulfonamide Antibiotics) Active No Information Medications Medication Instructions Dosage Effective Dates (start - stop) Status Comments Eliquis 5 mg tablet take 1 tablet by ora l route 2 times every day 5 MG - Active metoprolol succinate ER 25 mg tablet,extended release 24 hr take 1 tablet by oral route every day 25 MG - Active digoxin 125 mcg (0.125 mg) tablet take 1 tablet by oral route every day 125 MCG - Active Klor-Con M20 mEq tablet,extended release take 1 tablet by oral route every day with food 20 MEQ - Active furosemide 20 mg tablet take 1 tablet by oral route every day 20 MG - Active ibandronate 150 mg tablet take 1 tablet by oral route every month on the same date; Take with a full glass of water and remain in an upright position for at least 60 minutes. 150 MG - Active Calcium 600 with Vitamin D3 600 mg-12.5 mcg (500 unit) capsule take 1 tablet by oral route every day 1 tablet - Active olopatadine 0.1 % eye drops instill 1 drop by ophthalmic route 2 times every day into affected eye(s) at an interval of 6 to 8 hours 1.00 drop - Active Procedures Procedure Date Post-op Follow-up Visit No Charge Refraction After Cataract Laser Surgery Office/outpatient Visit, Est No Charge Refraction SCODI, Retina No Charge Optomap Fundus Photos 023 Eye Exam & Treatment Refraction Post-op Follow-up Visit Post-op Follow-up Visit Remove Cataract, Post Op Care 2 Remove Cataract, Insert Lens,Comanaged N IOLMaster-Professional No Charge GDX Retina No Charge Refraction Post-op Follow-up Visit Remove Cataract, Post Op Care 2 Remove Cataract, Insert Lens,Comanaged O IOLMaster-Professional No Charge Orbscan SCODI, Retina No Charge Refraction IOLMaster-Technical No Charge Optomap Fundus Photos 022 Office/outpatient Visit, Est SCODI, Retina No Charge Refraction No Charge Optomap Fundus Photos 022 Office/outpatient Visit, Est Advance Directives Directive Yes / No Effective Date File Name No Information Encounters Encounter Description Practice Location Reason(s) For Visit Diagnoses Date Provider Providers Copied on Encounter [facility], [address], [place], [place], [address], [place] tel:[phone] [place] Professional Post-Op (chief complaint) Post op visit 3 Sandi OD Lashawn. [address], [address], [place], [place], [address], [place]. tel:[phone] Referring Provider: Kathrine Patton OD L, [address], [place], [address]. tel:[phone] Office/outpa tient Visit, Est [facility], [address], [place], [place], [address], [place] tel:[phone] [place] Professional YAG Evaluation (chief complaint) Other secondary cataract, right eye 3 Guille Tucker. [address] [place], [place] [address], [address], [place], [place], [address], [place]. tel:[phone] Referring Provider: Kathrine Patton OD L, [address] [place], [place] [address], [place], [address]. tel:[phone] [facility], [address] [place], [place] [address], [place], [place], [address], tel:[phone] SEC [place] Professional Complete Exam (chief complaint) Puckering of macula, bilateralDru sen (degenerativ e) of macula, bilateralPre sence of intraocular lensOther secondary cataract, bilateralVit reous degeneration , bilateral 3 Pooja OD Kathrine. [address] [place], [place] [address], [address], [place], [place], [address], . tel:[phone] Referring Provider: Kathrine Patton OD L, [facility] [address], [place], [address]. tel:[phone] [facility], [facility] [address], [place], [place], [address], tel:[phone] SEC [place] DENNY Professional 1 month s/p PCIOL (chief complaint) Post op visit 2 Pooja OD Kathrine. [facility] [employer], [address], [place], [place], [address], [place]. tel:[phone] Referring Provider: Kathrine Patton OD L, [facility] [address], [place], [address]. tel:[phone] [facility], [facility] [address], [place], [place], [address], tel:[phone] SEC [place] DENNY Professional 1 wk CE PO (06/28/22) (chief complaint) Post op visit 2 Pooja OD Ktahrine. [facility] [employer], [address], [place], [place], [address], [place]. tel:[phone] Referring Provider: Kathrine Pooja OD Pretty, [address], [place], [address]. tel:[phone] [facility], [address], [place], [place], [address], tel:[phone] SEC [place] Professional 1 day PC IOL po (chief complaint) Post op visit Jun-0 2 Pooja Chisholm. [facility] [employer], [address], [place], [place], [address], [place]. tel:[phone] Referring Provider: Kathrine Olsen, [facility] [place] [employer] [address], [place], [address]. tel:[phone] [facility], [address] [place] [address] [address] [address], [place], [place], [address], [place] tel:[phone] [place] [address] [facility] [place] No Information May-3 2 Roger Logan. [address] [facility], [address], [place], [place], [address], [place]. tel:[phone] Referring Provider: Kathrine Poojavee Olsen, [facility] [address], [place], [address]. tel:[phone] [facility], [address] [place], [place] [address], [place], [place], [address], [place] tel:[phone] [place] Professional No Information May-2 2 Roger Logan. [address] [facility], [address], [place], [place], [address], [place]. tel:[phone] Referring Provider: Kathrine Olsen, [facility] [address], [place], [address]. tel:[phone] [facility], [address] [place], [place] [address]st [address], [place], [place], [address], tel:[phone] [place] Professional 2 week s/p PCIOL (chief complaint) Post op visit 0 2 Pooja Chisholm. [address] [address] [employer] [facility], [address], [place], [place], [address], [place]. tel:[phone] Referring Provider: Kathrine Olsen, [address], [place], [address]. tel:[phone] [facility], [address], [place], [place], [address], tel:[phone] [place] Professional post op (chief complaint) Post op visit Apr- 2 Pooja Chisholm. [address] [place] [address] [employer] [facility], [address], [place], [place], [address], [place]. tel:[phone] Referring Provider: Kathrinejanee Patton OD L, [address] [place] [address] [employer] [facility] [address], [place], [address]. tel:[phone] [facility], [address], [place], [place], [address], [place] tel:[phone] [facility] No Information Apr- 2 Roger Logan. [address], [address], [place], [place], [address], [place]. tel:[phone] Referring Provider: Kathrinejanee Patton [place] L, [address], [place], [address]. tel:[phone] [facility], [address], [place], [place], [address], tel:[phone] SEC [place] DENISHA Professional No Information Apr- 2 Roger Logan. [address], [address], [place], [place], [address], [place]. tel:[phone] Referring Provider: Kathrine [place], [address], [place], [address]. tel:[phone] [facility]pa [facility]ient [facility], [facility], [address] [employer] [address], [place], [place], [address], [place] tel:[phone] SEC [place] Professional Cataract evaluation (chief complaint) Puckering of macula, bilateralDru sen (degenerativ e) of macula, bilateralAge -related nuclear cataract, bilateral Sep-2 2 Roger Logan. [address] [facility], [address], [place], [place], [address], [place]. tel:[phone] Other Provider: Jluis Fried MD, [address] [place] [address], [address]. tel:[phone] ng Provider: Kathrine [place], [address], [place], [address]. tel:[phone] Office/outpa tient Visit, Rust [facility], [address], [place], [place], [address], [place] tel:[phone] SEC [place] Professional Complete (chief complaint) Combined forms of age-related cataract, bilateralPuc kering of macula, left eyeVitreous degeneration , left eyeDominant drusen, bilateral Cabrera-0 2 Pooja GRAY Kathrine. [facility] [employer], [address], [place], [place], [address], [place]. tel:[phone] Specialist: Karol Cedeno MD, [address] [place] [address], [address]. tel:[phone] ng Provider: [place], [address] [address], [place], [address]. tel:[phone] [facility], [address] [facility] [address], [place], [place], [address], tel:[phone] SEC Anaid Solis No Information 2 Guille Ceballos. [address], [address], [place], [place], [address], [place]. tel:[phone] Family History Family Member Type Diagnosis Age At Onset No Information Payers Payer name Insurance type Covered republican ID Authoriza tion(s) No Information Social History Type Description Quantity Date Captured Comments Alcohol Use Details No Caffeine Use Details Tobacco Use Status Current non-smoker Smoking Status Never smoker Non-Smoking Tobacco Use Details : No Details Available : No Details Available Sex Female Chief Complaint And Reason For Visit From encounter dated '03/23/2023 10:15'. Post-Op (chief complaint). Description: The 87 year old patient presents for a 2 1/2 week post op YAG PC OD. Patient states OD vision is better. Patient states OD feels a little sore when she rubs it. Reason For Referral Reason For Referral No Information Plan Of Treatment Date Type Action Status Patient Education Learning About YAG Lase r Capsulotomy completed Patient Education Learning About YAG Lase r Capsulotomy completed Patient Education The Eye: Anatomy Sketch completed Patient Education Learning About Retinal Drusen completed History Of Present Illness Encounter Date Complaint History Of Prese nt Illness Post-Op The 87 year old patient presents for a 2 1/2 week post op YAG PC OD. Patient states OD vision is better. Patient states OD feels a little sore when she rubs it. YAG Evaluation The 87 year old patient presents for evaluation of YAG Evaluation in the right eye and left eye. Pt reports difficulty seeing small print, trouble with glare at night while out and on bright shannon days x 3 months OD>OS. Pt uses OTC tears for dryness OU PRN. Complete Exam The 87 year old patient presents for a complete exam ou. Patient is pseudo ou. Monitoring Drusen ou and mac pucker OS. Patient denies any changes in vision ou. Patient states underneath her eyes are still swollen. 1 month s/p PCIOL The 87 year ol d patient presents for evaluation of 1 month s/p PCIOL in the right eye (06/28/22). Patient states VA seems good. 1 wk CE PO (06/28/22) The 86 yea r old patient presents for evaluation of 1 wk CE PO (06/28/22) in the right eye. Pt reports she is using Moxi QID OD, Pred QID OD, and Ketorolac QID OD. Pt reports OD is doing good and she can see a lot better since CE. 1 day PC IOL po The 86 year old patient presents for evaluation of 1 day PC IOL po in the right eye. All medications reviewed and PO instructions understood. Pt using Vig qid, PF1% qid, and Ketorolac qid. Pt denies pain or discomfort. Pt states vision has improved. 2 week s/p PCIOL The 86 year old patient presents for evaluation of 2 week s/p PCIOL in the left eye (05/24/22. Patient states VA seems blurry with the left eye. Patient using Pred, Ket, and Vig as directed. c/o with the right eye is difficulty driving at night due to glare, the difference between the two eyes trying to focus, reading newspaper print is difficult, and trouble seeing baseball scores on the television. post op The 86 year old patient presents for a 1 day post op CE OS. Patient is using Pred, Vigamox and Ketorolac qid OS. Patient denies any pain or discomfort only complaint is the drops burn. Patient states vision OS seems pretty good. Cataract evaluation The 86 year old patient presents for a cataract evaluation per Dr. Yanes and cleared by TRI. Patient has hx of ERM OS and Drusen ou. Patient is having a hard time reading small print. Patient is bothered by glare around lights at night. Patient states it is hard to recognize peoples faces from across the street. Patient states this is her 3rd eye DrErendira atwood. since January. Complete The 86 year old patient presents for evaluation of Complete in the right eye and left eye. Patient states her eyes feel strained, thinks her glasses are to strong. Glasses are 4 years old. Patients eyes matter in the morning. Pt has not had CE either eye, denies trauma to the eyes. No family history of AMD or glaucoma Functional Status Date Functional Assessmen t No Information Instructions Date Instruction Additional Infor chandni Impression/Plan Impression/Plan Impression/Plan Impression/Plan Impression/Plan Impression/Plan Impression/Plan Impression/Plan Impression/Plan Impression/Plan Assessments Type Assessment Date assessment Post op visit Patient Care Teams Name Effective Dates (start - stop) Status Members No Information
== END 2024-10-09 15:11 | disposition home or self-care (01) ==
PROVIDERS: PCP Family Medicine; Visit Provider Family Medicine
DX: R07.81 Pleurodynia (principal)
CPT/HCPCS: 71100